=== PATIENT | female | born 1955 | race African-American/Black ===

== ENCOUNTER 2019-12-19 16:59 | Emergency (ER) | payer BC, SELFPAY ==
[2019-12-19] MEDS ORDERED: Adacel (T-DAP) 0.5 ML SYRINGE ONE (17:11)
[2019-12-19] MEDS ORDERED: Lidocaine 1% w/Epinephrine 1:100K 20 ML VIAL ONE (17:11)
== END 2019-12-19 17:47 | disposition home or self-care (01) ==
LOC: ERS 16:59
DX: S71.131A Puncture wound without foreign body, right thigh, initial encounter (principal); I10 Essential (primary) hypertension; F41.9 Anxiety disorder, unspecified; X58.XXXA Exposure to other specified factors, initial encounter
CPT/HCPCS: 12001; 90715